=== PATIENT | female | born 1980 | race Caucasian/White ===

== ENCOUNTER 2024-03-14 08:07 | Outpatient (CLI) | payer OTHER | END 2024-03-14 08:08 | disposition home or self-care (01) | LOC: CSHULT 08:07 | PROVIDERS: ATTEND Internal Medicine Gastroenterology | DX: K92.2 Gastrointestinal hemorrhage, unspecified (principal); R10.13 Epigastric pain; K76.9 Liver disease, unspecified | CPT/HCPCS: 76705 ==